=== PATIENT | female | born 1935 | race Caucasian/White ===

== ENCOUNTER → 2017-02-16 | Outpatient (CLI) | payer MEDICARE, BC ==
--- NOTE | 2017-02-16 16:42 | RAD ---
Right hip radiograph 02/16/2017 at 1616 hours Indication: Right hip pain radiating towards the back for 6 days Comparison: None available Technique: 2 views of the right hip are provided. Findings: There is joint space narrowing of the femoral acetabular joint. There is subchondral sclerosis along the superolateral acetabular rim. Mild osteophytosis is present. There is no acute fracture or dislocation. No soft tissue abnormality is identified. Mild osteoarthrosis of the symphysis pubis. 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
== END | disposition home or self-care (01) ==
LOC: RAD 15:52
PROVIDERS: ATTEND Family Medicine
DX: M16.11 Unilateral primary osteoarthritis, right hip (principal)
CPT/HCPCS: 73502

== ENCOUNTER → 2017-03-23 | Outpatient (CLI) | payer MEDICARE, BC ==
--- NOTE | 2017-03-23 12:58 | CARD ---
APPROVED REPORT EXAM: Two-dimensional and M-mode echocardiogram with Doppler and color Doppler. Other Information Quality : Good INDICATION Atrial Fibrillation 2D DIMENSIONS RVDd2.7 (2.9-3.5cm)Left Atrium(2D)2.7 (1.6-4.0cm) IVSd1.1 (0.7-1.1cm)Aortic Root(2D)3.0 (2.0-3.7cm) LVDd3.6 (3.9-5.9cm)LVOT Diameter2.0 (1.8-2.4cm) PWd1.0 (0.7-1.1cm)LVDs2.3 (2.5-4.0cm) FS (%) 30.0 %SV37.2 ml LVEF(%)60.0 (>50%) Aortic Valve AoV Peak Jimmy.98.2cm/sAoV VTI17.8cm AO Peak GR.3.9mmHgLVOT Peak Jimmy.83.4cm/s AO Mean GR.2mmHgAVA (VMAX)2.72cm2 MAYTE (VTI)3.20cm2 Mitral Valve MV E Eovfhyfb38.8cm/sMV DECEL WXUB586ld MV A Khfppwie96.6cm/sE/A Ratio0.6 Tricuspid Valve TR P. Mouarnmj558xe/sRAP RIZJXWLK0huYu TR Peak Gr.93nqGwYJCJ02qmLh Pulmonary Vein D2 Mfilmeel11.2cm/s LEFT VENTRICLE The left ventricle is normal size. There is normal left ventricular wall thickness. The left ventricu lar systolic function is normal and the ejection fraction is within normal range. The Ejection Fracti on is 55-60%. There is normal LV segmental wall motion. Transmitral Doppler flow pattern is Grade I-a bnormal relaxation pattern. RIGHT VENTRICLE The right ventricle is normal size. The right ventricular systolic function is normal. ATRIA The left atrium size is normal. The right atrium size is normal. The interatrial septum is intact wit h no evidence for an atrial septal defect or patent foramen ovale as noted on 2-D or Doppler imaging. AORTIC VALVE The aortic valve is normal in structure and function. Doppler and Color Flow revealed no significant aortic regurgitation. There is no significant aortic valvular stenosis. MITRAL VALVE The mitral valve is normal in structure and function. There is no evidence of mitral valve prolapse. There is no mitral valve stenosis. Doppler and Color-flow revealed trace to mild mitral regurgitation . TRICUSPID VALVE The tricuspid valve is normal in structure and function. Doppler and Color Flow revealed trace to mil d tricuspid regurgitation. The PA pressure was estimated at 38 mmHg. There is no tricuspid valve sten osis. PULMONIC VALVE Doppler and Color Flow revealed mild pulmonic valvular regurgitation. There is no pulmonic valvular s tenosis. GREAT VESSELS The aortic root is normal in size. The ascending aorta is normal in size. The IVC is normal in size a nd collapses >50% with inspiration. PERICARDIAL EFFUSION There is no evidence of significant pericardial effusion. Critical Notification Critical Value: No <Conclusion> The left ventricular systolic function is normal and the ejection fraction is within normal range. Th e Ejection Fraction is 55-60%. There is normal LV segmental wall motion.
== END | disposition home or self-care (01) ==
LOC: ECHO 10:14
PROVIDERS: ATTEND Internal Medicine Cardiovascular Disease
DX: I48.0 Paroxysmal atrial fibrillation (principal)
CPT/HCPCS: 93306

== ENCOUNTER → 2018-03-22 | Outpatient (CLI) | payer MEDICARE, BC ==
[2018-03-22] MEDS: REGADENOSON 0.4 MG/5 ML DISP.SYRIN. IV (09:33)
== END | disposition home or self-care (01) ==
LOC: NM 07:24
DX: I48.0 Paroxysmal atrial fibrillation (principal); J44.9 Chronic obstructive pulmonary disease, unspecified; M16.11 Unilateral primary osteoarthritis, right hip
CPT/HCPCS: 78452; 93017; 96374; 96375; 96376; A9500; J2785

== ENCOUNTER 2019-01-20 17:12 | Emergency (ER) | payer MEDICARE, BC ==
[~2019-01-20] VITALS: Ht 162.6 cm; Wt 77.1 kg
[~2019-01-20 17:12] MED LIST: ASPI-630 PO; CALC600T4 PO; CITA40TA5 PO; FLEC100T PO; HYDR-2145 PO; OMEP20CA10 PO; SIMV40TA3 PO; TIOT18CA IH; [UNRECOGNIZED DRUG - OTHER]
[2019-01-20] MEDS ORDERED: IV NORMAL SALINE 1000ML BAG 1,000 ML IV ONE (17:30)
[2019-01-20 17:40] LABS: BASO % 1 % (0-3); EOS # 0.1 x10^3/uL (0.0-0.7); EOS % 2 % (0-3); HEMATOCRIT 45.4 % (36.0-47.0); HEMOGLOBIN 15.4 g/dL (12.0-15.5); LYMPH % 29 % (24-48); MEAN CORPUSCULAR HEMOGLOBIN 32 pg (25-35); MEAN CORPUSCULAR HGB CONC 34 g/dL (31-37); MEAN CORPUSCULAR VOLUME 95 fL (79-100); MONO # 0.6 x10^3/uL (0.0-1.1); MONO % 8 % (0-9); NEUT # 4.4 x10^3uL (1.8-7.7); NEUT % 61 % (31-73); PLATELET COUNT 187 x10^3/uL (140-400); RED BLOOD COUNT 4.76 x10^6/uL (3.50-5.40); RED CELL DISTRIBUTION WIDTH 13.8 % (11.5-14.5); WHITE BLOOD COUNT 7.2 x10^3/uL (4.0-11.0)
[2019-01-20 17:52] LABS: CALCIUM 9.5 mg/dL (8.5-10.1); CREATININE 0.9 mg/dL (0.6-1.0); GFR 59.9; POTASSIUM 4.8 mmol/L (3.5-5.1)
[2019-01-20 18:00] LABS: ALBUMIN 3.6 g/dL (3.4-5.0); MAGNESIUM 2.1 mg/dL (1.8-2.4); TOTAL BILIRUBIN 0.4 mg/dL (0.2-1.0); TOTAL PROTEIN 7.3 g/dL (6.4-8.2)
[2019-01-20 18:08] LABS: CREATINE KINASE 55 U/L (26-192)
--- NOTE | 2019-01-20 18:23 | RAD ---
CT HEAD WO CONTRAST History: Fall, weakness Comparison: None. Technique: Noncontrast CT imaging was performed of the head. Exposure: One or more of the following individualized dose reduction techniques were utilized for this examination: 1. Automated exposure control 2. Adjustment of the mA and/or kV according to patient size 3. Use of iterative reconstruction technique. Findings: No acute extra-axial or parenchymal hemorrhage is identified. There is no significant intra-axial mass effect, midline shift, or extra-axial fluid collection. The dockery-white differentiation of the major vascular territories is preserved. The ventricles, sulci, and cisterns are within normal limits in size and configuration. Focus of extra-axial calcification in the right frontal region may be osteoma or calcified meningioma, not associated with significant soft tissue mass effect. The mastoid air cells and the visualized paranasal sinuses are aerated. No acute calvarial abnormality is identified. Impression: 1. No acute intracranial abnormality is identified. Electronically signed by: Reymundo Gallo MD (01/20/2019 6:21 PM) [facility]
[2019-01-20 19:11] LABS: BILIRUBIN,URINE NEGATIVE (NEG); CLARITY,URINE CLEAR; COLOR,URINE YELLOW; NITRITE,URINE NEGATIVE (NEG); PH,URINE 6.5; PROTEIN,URINE NEGATIVE (NEG-TRACE)
[2019-01-20 19:16] LABS: BACTERIA,URINE FEW /HPF (0-FEW); RBC,URINE 0 /HPF (0-2); SQUAMOUS EPITHELIAL CELL,UR FEW /LPF
[2019-01-20 19:17] LABS: AMORPHOUS SEDIMENT,UR PRESENT /HPF; BARBITURATES NEG (NEG); BENZODIAZEPINES NEG (NEG); CANNABINOIDS NEG (NEG); COCAINE NEG (NEG); METHADONE NEG (NEG); OPIATES NEG (NEG); PHENCYCLIDINE NEG (NEG)
--- NOTE | 2019-01-20 19:21 | PHYS DOC ---
Past Medical History Past Medical History: Cancer, COPD, Depression, High Cholesterol, Other Additional Past Medical Histor: colon cancer (YULIANA RAM APRN) Past Surgical History: Hysterectomy, Tonsillectomy, Other Additional Past Surgical Histo: bowel resection (YULIANA RAM APRN) Additional Information: quit smoking 1988 Alcohol Use: None Drug Use: None (YULIANA RAM APRN) Adult General Chief Complaint Chief Complaint: MECHANICAL FALL HPI HPI Patient is a 83 year old female with history of COPD, high cholesterol, who [place] the [place] Patient states he had finished gambling, had collected her money and was walking through the casino when she states she felt weak and fell back. Denies any loss of consciousness. Denies any headache or neck pain. Denies any pain anywhere. Off note she states she has been hungry, she had breakfast did not have lunch. She believes she was probably hungry when she fell. Denies any LOC (YULIANA RAM APRN) Review of Systems Review of Systems Constitutional: Denies fever or chills [] Eyes: Denies change in visual acuity, redness, or eye pain [] HENT: Denies nasal congestion or sore throat [] Respiratory: Denies cough or shortness of breath [] Cardiovascular: No additional information not addressed in HPI [] GI: Denies abdominal pain, nausea, vomiting, bloody stools or diarrhea [] : Denies dysuria or hematuria [] Musculoskeletal: Fall. Denies back pain or joint pain [] Integument: Denies rash or skin lesions [] Neurologic: Denies headache, focal weakness or sensory changes [] All other systems were reviewed and found to be within normal limits, except as documented in this note. (YULIANA RAM APRN) Current Medications Current Medications Current Medications Medications (Trade) Dose Ordered Sig/Romana Start Time Stop Time Status Last Admin Dose Admin Sodium Chloride 1,000 ml @ 1,000 mls/hr 1X ONCE 01/20/19 17:30 01/20/19 18:29 DC 01/20/19 17:41 1,000 MLS/HR (MONIKA HUNTER DO) Allergies Allergies Allergies Coded Allergies Type Severity Reaction Last Updated Verified No Known Drug Allergies 03/22/18 No (MONIKA HUNTER DO) Physical Exam Physical Exam Constitutional: Well developed, well nourished, no acute distress, non-toxic appearance. [] HENT: Normocephalic, atraumatic, bilateral external ears normal, oropharynx moist, no oral exudates, nose normal. [] Eyes: PERRLA, EOMI, conjunctiva normal, no discharge. [] Neck: Normal range of motion, no tenderness, supple, no stridor. [] Cardiovascular:Heart rate regular rhythm, no murmur [] Lungs & Thorax: Bilateral breath sounds clear to auscultation [] Abdomen: Bowel sounds normal, soft, no tenderness, no masses, no pulsatile masses. [] Skin: Warm, dry, no erythema, no rash. [] Back: No tenderness, no CVA tenderness. [] Extremities: No tenderness, no cyanosis, no clubbing, ROM intact, no edema. [] Neurologic: Alert and oriented X 3, normal motor function, normal sensory function, no focal deficits noted. Cranial nerves II through XII intact. Psychologic: Affect normal, judgement normal, mood normal. [] (YULIANA RAM APRN) Current Patient Data Vital Signs Vital Signs Date Time Temp Pulse Resp B/P (MAP) Pulse Ox O2 Delivery O2 Flow Rate FiO2 01/20/19 19:27 64 15 92 01/20/19 17:17 97.8 172/91 (118) Room Air 97.8 (HUNTER,MONIKA R DO) Lab Values Laboratory Tests Test 01/20/19 17:31 01/20/19 18:45 White Blood Count 7.2 x10^3/uL (4.0-11.0) Red Blood Count 4.76 x10^6/uL (3.50-5.40) Hemoglobin 15.4 g/dL (12.0-15.5) Hematocrit 45.4 % (36.0-47.0) Mean Corpuscular Volume 95 fL (79-100) Mean Corpuscular Hemoglobin 32 pg (25-35) Mean Corpuscular Hemoglobin Concent 34 g/dL (31-37) Red Cell Distribution Width 13.8 % (11.5-14.5) Platelet Count 187 x10^3/uL (140-400) Neutrophils (%) (Auto) 61 % (31-73) Lymphocytes (%) (Auto) 29 % (24-48) Monocytes (%) (Auto) 8 % (0-9) Eosinophils (%) (Auto) 2 % (0-3) Basophils (%) (Auto) 1 % (0-3) Neutrophils # (Auto) 4.4 x10^3uL (1.8-7.7) Lymphocytes # (Auto) 2.0 x10^3/uL (1.0-4.8) Monocytes # (Auto) 0.6 x10^3/uL (0.0-1.1) Eosinophils # (Auto) 0.1 x10^3/uL (0.0-0.7) Basophils # (Auto) 0.0 x10^3/uL (0.0-0.2) Prothrombin Time 13.0 SEC (11.7-14.0) Prothrombin Time INR 1.0 (0.8-1.1) Sodium Level 140 mmol/L (136-145) Potassium Level 4.8 mmol/L (3.5-5.1) Chloride Level 104 mmol/L (98-107) Carbon Dioxide Level 28 mmol/L (21-32) Anion Gap 8 (6-14) Blood Urea Nitrogen 15 mg/dL (7-20) Creatinine 0.9 mg/dL (0.6-1.0) Estimated GFR (Cockcroft-Gault) 59.9 BUN/Creatinine Ratio 17 (6-20) Glucose Level 95 mg/dL (70-99) Calcium Level 9.5 mg/dL (8.5-10.1) Magnesium Level 2.1 mg/dL (1.8-2.4) Total Bilirubin 0.4 mg/dL (0.2-1.0) Aspartate Amino Transferase (AST) 19 U/L (15-37) Alanine Aminotransferase (ALT) 16 U/L (14-59) Alkaline Phosphatase 78 U/L (46-116) Creatine Kinase 55 U/L (26-192) Creatine Kinase MB (Mass) 0.9 ng/mL (0.0-3.6) Creatine Kinase MB Relative Index % (0-4) Troponin I Quantitative < 0.017 ng/mL (0.000-0.055) MQ-Cvo-P-Type Natriuretic Peptide 384 pg/mL (0-449) Total Protein 7.3 g/dL (6.4-8.2) Albumin 3.6 g/dL (3.4-5.0) Albumin/Globulin Ratio 1.0 (1.0-1.7) Thyroid Stimulating Hormone (TSH) 2.954 uIU/mL (0.358-3.74) Ethyl Alcohol Level < 10 mg/dL (0-10) Urine Collection Type Unknown Urine Color Yellow Urine Clarity Clear Urine pH 6.5 Urine Specific [place] 1.010 Urine Protein Negative mg/dL (NEG-TRACE) Urine Glucose (UA) Negative mg/dL (NEG) Urine Ketones (Stick) Negative mg/dL (NEG) Urine Blood Negative (NEG) Urine Nitrite Negative (NEG) Urine Bilirubin Negative (NEG) Urine Urobilinogen Dipstick 1.0 mg/dL (0.2 mg/dL) Urine Leukocyte Esterase Small (NEG) Urine RBC 0 /HPF (0-2) Urine WBC 5-10 /HPF (0-4) Urine Squamous Epithelial Cells Few /LPF Urine Amorphous Sediment Present /HPF Urine Bacteria Few /HPF (0-FEW) Urine Mucus Slight /LPF Urine Opiates Screen Neg (NEG) Urine Methadone Screen Neg (NEG) Urine Barbiturates Neg (NEG) Urine Phencyclidine Screen Neg (NEG) Urine Amphetamine/Methamphetamine Neg (NEG) Urine Benzodiazepines Screen Neg (NEG) Urine Cocaine Screen Neg (NEG) Urine Cannabinoids Screen Neg (NEG) Urine Ethyl Alcohol Neg (NEG) Laboratory Tests 01/20/19 17:31 Laboratory Tests 01/20/19 17:31 (MONIKA HUNTER DO) EKG EKG [address] Hunter sinus rhythm heart rate 59 no STEMI[] (YULIANA RAM VICE PRESIDENT PROCESS) Radiology/Procedures Radiology/Procedures []PROCEDURE: CT HEAD WO CONTRAST CT HEAD WO CONTRAST History: Fall, weakness Comparison: None. Technique: Noncontrast CT imaging was performed of the head. Exposure: One or more of the following individualized dose reduction techniques were utilized for this examination: 1. Automated exposure control 2. Adjustment of the mA and/or kV according to patient size 3. Use of iterative reconstruction technique. Findings: No acute extra-axial or parenchymal hemorrhage is identified. There is no significant intra-axial mass effect, midline shift, or extra-axial fluid collection. The dockery-white differentiation of the major vascular territories is preserved. The ventricles, sulci, and cisterns are within normal limits in size and configuration. Focus of extra-axial calcification in the right frontal region may be osteoma or calcified meningioma, not associated with significant soft tissue mass effect. The mastoid air cells and the visualized paranasal sinuses are aerated. No acute calvarial abnormality is identified. Impression: 1. No acute intracranial abnormality is identified. Electronically signed by: Christiano Sampson MD (01/20/2019 6:21 PM) [facility] DICTATED and SIGNED BY: CHRISTIANO SAMPSON MD DATE: 01/20/191820 (YULIANA RAM APRN) Course & Med Decision Making Course & Med Decision Making Pertinent Labs and Imaging studies reviewed. (See chart for details) This is a 83-year-old female patient presenting to the ED today from the local [facility] after falling. She denies any loss of consciousness when she fell but she felt weak. She states she had not had lunch and this could have been the reason for her symptoms. On arrival to the ED she has no complaints. CT of the head is negative, lab work is negative, EKG was negative, chest x-ray is negative. Patient was given a liter of IV fluids. Ambulated with her with an RN to the bathroom for urine collection, she did very sign well requesting to go home. UA noted for UTI-D/C on Cephalaxin. F/u with PCP in 1 week. (YULIANA RAM APRN) Dragon Disclaimer Dragon Disclaimer This electronic medical record was generated, in whole or in part, using a voice recognition dictation system. (YULIANA RAM APRN) Departure Departure Impression: Primary Impression: Fall from standing Additional Impression: Urinary tract infection Disposition: 01 HOME, SELF-CARE Condition: STABLE Referrals: DAVID MANRIQUEZ MD (PCP) follow up in 1 week with your doctor Patient Instructions: Fall Prevention and Home Safety, Urinary Tract Infection Additional Instructions: You were evaluated in the emergency room after falling. Your urine was noted for infection, we put you on antibiotics, ensure you complete them. Please push fluids. Follow-up with your doctor in the next 3 days. Come back to the ED at any point symptoms worsen. Scripts Cephalexin (CEPHALEXIN) 500 Mg Tablet 1 TAB PO BID, #14 TAB Prov: YULIANA RAM APRN 01/20/19 Attending Signature Attending Signature I have reviewed the PA/EGG PACKER's note and plan of care. I was available for consultation as needed during the patient's visit in the emergency department. I agree with the clinical impression, plan, and disposition. (MONIKA HUNTER DO) Problem Qualifiers Primary Impression: Fall from standing Encounter type: initial encounter Qualified Codes: W19.XXXA - Unspecified fall, initial encounter Additional Impression: Urinary tract infection Urinary tract infection type: site unspecified Hematuria presence: without hematuria Qualified Codes: N39.0 - Urinary tract infection, site not spec ified YULIANA RAM VICE PRESIDENT PROCESS Jan 20, 2019 19:21 MONIKA HUNTER DO Jan 21, 2019 03:44
[2019-01-20] MEDS ORDERED: CEPH500T PO (19:23)
[2019-01-20 19:24] LABS: AMPHETAMINE/METHAMPHETAMINE NEG (NEG)
[2019-01-20 19:27] VITALS: BP 191/81
--- NOTE | 2019-01-20 21:51 | RAD ---
PORTABLE CHEST 1V History: Fall, weakness Comparison: None. Findings: Single view of the chest is submitted. There is no infiltrate, pneumothorax, or effusion. The pericardial cardiac silhouette is borderline in size. impression: 1. There is no radiographic evidence of acute cardiopulmonary disease. Electronically signed by: Reymundo Gallo MD (01/20/2019 9:48 PM) [facility]
--- NOTE | 2019-01-21 06:00 | EKG ---
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
== END 2019-01-20 19:40 | disposition home or self-care (01) ==
LOC: ER 17:12
DX: N39.0 Urinary tract infection, site not specified (principal); R53.1 Weakness; R51 Headache; E78.00 Pure hypercholesterolemia, unspecified; J44.9 Chronic obstructive pulmonary disease, unspecified; F32.9 Major depressive disorder, single episode, unspecified; Z90.710 Acquired absence of both cervix and uterus; Z87.891 Personal history of nicotine dependence; W18.39XA Other fall on same level, initial encounter; Y93.01 Activity, walking, marching and hiking; Y92.59 Other trade areas as the place of occurrence of the external cause; Y99.8 Other external cause status
CPT/HCPCS: 36415; 70450; 71045; 80053; 80307; 81001; 82553; 83735; 83880; 84443; 84484; 85025; 85610; 93005; 99285; G0480; J7030

== ENCOUNTER 2019-06-15 08:34 | Emergency (ER) | payer MEDICARE, BC ==
[~2019-06-15] VITALS: Ht 162.6 cm; Wt 76.7 kg
[~2019-06-15 08:34] MED LIST changes: +CEPH500T PO; +SIMV40TA18 PO; -SIMV40TA3 PO
--- NOTE | 2019-06-15 09:43 | RAD ---
EXAM: Chest, single view. HISTORY: Slurred speech. COMPARISON: 01/20/2019 FINDINGS: A frontal view of the chest is obtained. There is mild diffuse increased interstitial opacity likely due to atelectasis. There is no stephen congestion. There is no consolidation, pleural effusion or pneumothorax. There is a stable prominent cardiac silhouette. IMPRESSION: Stable interstitial prominence without stephen congestion or consolidation. Electronically signed by: Joann Ford MD (06/15/2019 9:40 AM) [place] [id number]
[2019-06-15 10:14] LABS: BASO % 1 % (0-3); EOS # 0.1 x10^3/uL (0.0-0.7); EOS % 2 % (0-3); HEMATOCRIT 42.1 % (36.0-47.0); LYMPH # 1.4 x10^3/uL (1.0-4.8); LYMPH % 18 % (24-48); MEAN CORPUSCULAR HEMOGLOBIN 32 pg (25-35); MEAN CORPUSCULAR HGB CONC 33 g/dL (31-37); MEAN CORPUSCULAR VOLUME 95 fL (79-100); MONO # 0.5 x10^3/uL (0.0-1.1); MONO % 7 % (0-9); NEUT # 5.8 x10^3/uL (1.8-7.7); NEUT % 74 % (31-73); PLATELET COUNT 223 x10^3/uL (140-400); RED BLOOD COUNT 4.45 x10^6/uL (3.50-5.40); RED CELL DISTRIBUTION WIDTH 13.8 % (11.5-14.5); WHITE BLOOD COUNT 7.9 x10^3/uL (4.0-11.0)
[2019-06-15 10:23] LABS: PROTHROMBIN TIME PATIENT 12.9 SEC (11.7-14.0)
--- NOTE | 2019-06-15 10:27 | RAD ---
CT HEAD WO CONTRAST History: slurred speech Comparison: January 20, 2019 Technique: Noncontrast CT imaging was performed of the head. Exposure: One or more of the following individualized dose reduction techniques were utilized for this examination: 1. Automated exposure control 2. Adjustment of the mA and/or kV according to patient size 3. Use of iterative reconstruction technique. Findings: No intracranial hemorrhage. No mass effect. No hydrocephalus. Extra-axial spaces are unremarkable. Mild foci of decreased attenuation within the hemispheric white matter, most often due to chronic microvascular ischemia. Imaged orbits are unremarkable. Imaged paranasal sinuses and mastoid air cells are clear. Unchanged smooth benign hyperostosis along the inner table right frontal region. Impression: 1. No acute intracranial abnormality. Electronically signed by: Mikel Ibanez DO (06/15/2019 10:24 AM) [id number]
[2019-06-15 10:35] LABS: CREATININE 0.9 mg/dL (0.6-1.0); GFR 59.9; POTASSIUM 4.5 mmol/L (3.5-5.1)
[2019-06-15 10:41] LABS: ALBUMIN 3.3 g/dL (3.4-5.0); MAGNESIUM 1.7 mg/dL (1.8-2.4); TOTAL BILIRUBIN 0.4 mg/dL (0.2-1.0); TOTAL PROTEIN 6.7 g/dL (6.4-8.2)
--- NOTE | 2019-06-15 10:47 | EKG ---
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
--- NOTE | 2019-06-15 11:53 | RAD ---
EXAM: Carotid Doppler sonogram. HISTORY: Transient ischemic attack. TECHNIQUE: [place]atham scale and color Doppler sonographic evaluation of the neck with spectral waveform analysis was performed and static images are submitted for review. FINDINGS: The peak systolic velocity within the right common carotid artery is 83 cm/sec. The peak systolic velocity within the right internal carotid artery is 71 cm/sec and the end diastolic velocity within the right internal carotid artery is 20 cm/sec. The right ICA/CCA ratio is 1.2. The peak systolic velocity within the left common carotid artery is 80 cm/sec. The peak systolic velocity within the left internal carotid artery is 99 cm/sec and the end diastolic velocity within the left internal carotid artery is 26 cm/sec. The left ICA/CCA ratio is 1.3. There is normal antegrade flow within both vertebral arteries. IMPRESSION: No Doppler evidence of hemodynamically significant stenosis within the carotid or vertebral arteries. PQRS Compliance Statement - Stenosis calculations for CT, MR and conventional angiography are based upon measurement of the distal ICA diameter in accordance with the NASCET methodology. Stenosis calculations for carotid ultrasound studies are derived from validated velocity criteria which are known to correlate with the NASCET methodology. Electronically signed by: Joann Ford MD (06/15/2019 11:50 AM) [id number]
--- NOTE | 2019-06-15 12:31 | PHYS DOC ---
Past Medical History Past Medical History: Cancer, COPD, Depression, GERD, High Cholesterol, Other Additional Past Medical Histor: colon cancer Past Surgical History: Appendectomy, Cholecystectomy, Hysterectomy, Tonsillect adonis, Other Additional Past Surgical Histo: bowel resection Alcohol Use: None Drug Use: None Adult General Chief Complaint Chief Complaint: NEURO SYMPTOMS/DEFICITS [facility] HPI Patient is a 83 year old female who presents with complaining of slurred speech. Patient complaining of 2 episodes of slurred speech yesterday that last about 30 minutes and resolved spontaneously without focal neuro deficit, nausea and vomiting, chest pain, shortness of breath, new headache, blurred vision, history of the same problem. Patient states her family asked her to come to emergency room for evaluation. Patient currently taking 81 mg of aspirin and had 1 today. Review of Systems Review of Systems Constitutional: Denies fever or chills [] Eyes: Denies change in visual acuity, redness, or eye pain [] HENT: Denies nasal congestion or sore throat [] Respiratory: Denies cough or shortness of breath [] Cardiovascular: No additional information not addressed in HPI [] GI: Denies abdominal pain, nausea, vomiting, bloody stools or diarrhea [] : Denies dysuria or hematuria [] Musculoskeletal: Denies back pain or joint pain [] Integument: Denies rash or skin lesions [] Neurologic: Denies headache, focal weakness or sensory changes [] Endocrine: Denies polyuria or polydipsia [] All other systems were reviewed and found to be within normal limits, except as documented in this note. Allergies Allergies Allergies Coded Allergies Type Severity Reaction Last Updated Verified No Known Drug Allergies 03/22/18 No Physical Exam Physical Exam Constitutional: Well developed, well nourished, no acute distress, non-toxic appearance. [] HENT: Normocephalic, atraumatic, bilateral external ears normal, oropharynx moist, no oral exudates, nose normal. [] Eyes: PERRLA, EOMI, conjunctiva normal, no discharge. [] Neck: Normal range of motion, no tenderness, supple, no stridor. [] Cardiovascular:Heart rate regular rhythm, no murmur [] Lungs & Thorax: Bilateral breath sounds clear to auscultation [] Abdomen: Bowel sounds normal, soft, no tenderness, no masses, no pulsatile masses. [] Skin: Warm, dry, no erythema, no rash. [] Back: No tenderness, no CVA tenderness. [] Extremities: No tenderness, no cyanosis, no clubbing, ROM intact, no edema. [] Neurologic: Alert and oriented X 3, normal motor function, normal sensory function, no focal deficits noted. [] Psychologic: Affect anxious, judgement normal, mood normal. [] Current Patient Data Vital Signs Vital Signs Date Time Temp Pulse Resp B/P (MAP) Pulse Ox O2 Delivery O2 Flow Rate FiO2 06/15/19 11:50 62 18 96 06/15/19 09:03 99.2 144/67 (92) Room Air 99.2 Lab Values Laboratory Tests Test 06/15/19 10:03 06/15/19 12:25 White Blood Count 7.9 x10^3/uL (4.0-11.0) Red Blood Count 4.45 x10^6/uL (3.50-5.40) Hemoglobin 14.0 g/dL (12.0-15.5) Hematocrit 42.1 % (36.0-47.0) Mean Corpuscular Volume 95 fL (79-100) Mean Corpuscular Hemoglobin 32 pg (25-35) Mean Corpuscular Hemoglobin Concent 33 g/dL (31-37) Red Cell Distribution Width 13.8 % (11.5-14.5) Platelet Count 223 x10^3/uL (140-400) Neutrophils (%) (Auto) 74 % (31-73) H Lymphocytes (%) (Auto) 18 % (24-48) L Monocytes (%) (Auto) 7 % (0-9) Eosinophils (%) (Auto) 2 % (0-3) Basophils (%) (Auto) 1 % (0-3) Neutrophils # (Auto) 5.8 x10^3/uL (1.8-7.7) Lymphocytes # (Auto) 1.4 x10^3/uL (1.0-4.8) Monocytes # (Auto) 0.5 x10^3/uL (0.0-1.1) Eosinophils # (Auto) 0.1 x10^3/uL (0.0-0.7) Basophils # (Auto) 0.0 x10^3/uL (0.0-0.2) Prothrombin Time 12.9 SEC (11.7-14.0) Prothrombin Time INR 1.0 (0.8-1.1) Sodium Level 141 mmol/L (136-145) Potassium Level 4.5 mmol/L (3.5-5.1) Chloride Level 106 mmol/L (98-107) Carbon Dioxide Level 28 mmol/L (21-32) Anion Gap 7 (6-14) Blood Urea Nitrogen 16 mg/dL (7-20) Creatinine 0.9 mg/dL (0.6-1.0) Estimated GFR (Cockcroft-Gault) 59.9 BUN/Creatinine Ratio 18 (6-20) Glucose Level 87 mg/dL (70-99) Calcium Level 9.0 mg/dL (8.5-10.1) Magnesium Level 1.7 mg/dL (1.8-2.4) L Total Bilirubin 0.4 mg/dL (0.2-1.0) Aspartate Amino Transferase (AST) 20 U/L (15-37) Alanine Aminotransferase (ALT) 14 U/L (14-59) Alkaline Phosphatase 95 U/L (46-116) Creatine Kinase 55 U/L (26-192) Troponin I Quantitative < 0.017 ng/mL (0.000-0.055) AQ-Ldq-G-Type Natriuretic Peptide 375 pg/mL (0-449) Total Protein 6.7 g/dL (6.4-8.2) Albumin 3.3 g/dL (3.4-5.0) L Albumin/Globulin Ratio 1.0 (1.0-1.7) Urine Collection Type Unknown Urine Color Yellow Urine Clarity Clear Urine pH 6.0 Urine Specific [place] 1.010 Urine Protein Negative mg/dL (NEG-TRACE) Urine Glucose (UA) Negative mg/dL (NEG) Urine Ketones (Stick) Negative mg/dL (NEG) Urine Blood Negative (NEG) Urine Nitrite Negative (NEG) Urine Bilirubin Negative (NEG) Urine Urobilinogen Dipstick 1.0 mg/dL (0.2 mg/dL) Urine Leukocyte Esterase Small (NEG) Urine RBC Occ /HPF (0-2) Urine WBC 5-10 /HPF (0-4) Urine Squamous Epithelial Cells Mod /LPF Urine Bacteria Moderate /HPF (0-FEW) Urine Mucus Slight /LPF Laboratory Tests 06/15/19 10:03 Laboratory Tests 06/15/19 10:03 EKG EKG EKG interpreted by me. EKG at 0 945 showed normal sinus rhythm at rate of 64 to fall at 224, left fourth axis, no acute ST and T-wave abnormalities. Radiology/Procedures Radiology/Procedures [][facility] [address] [place] [address] IMAGING REPORT Signed PATIENT: HARDEEP KNIGHT ACCOUNT: [id number] : 1935 LOCATION: ER AGE: 83 SEX: F EXAM STATUS: REG ER ORD. PHYSICIAN: ELSI JAMES MD REASON: slurred speech PROCEDURE: CT HEAD WO CONTRAST CT HEAD WO CONTRAST History: slurred speech Comparison: January 20, 2019 Technique: Noncontrast CT imaging was performed of the head. Exposure: One or more of the following individualized dose reduction techniques were utilized for this examination: 1. Automated exposure control 2. Adjustment of the mA and/or kV according to patient size 3. Use of iterative reconstruction technique. Findings: No intracranial hemorrhage. No mass effect. No hydrocephalus. Extra-axial spaces are unremarkable. Mild foci of decreased attenuation within the hemispheric white matter, most often due to chronic microvascular ischemia. Imaged orbits are unremarkable. Imaged paranasal sinuses and mastoid air cells are clear. Unchanged smooth benign hyperostosis along the inner table right frontal region. Impression: 1. No acute intracranial abnormality. Electronically signed by: Mikel Ibanez DO (06/15/2019 10:24 AM) [id number] DICTATED and SIGNED BY: MIKEL IBANEZ DO DATE: 06/15/[address] [place] [address] [address] [place] [address] IMAGING REPORT Signed PATIENT: HARDEEP KNIGHT ACCOUNT: [id number] : 1935 LOCATION: ER AGE: 83 SEX: F EXAM STATUS: REG ER ORD. PHYSICIAN: ELSI JAMES MD REASON: slurred speech PROCEDURE: PORTABLE CHEST 1V EXAM: Chest, single view. HISTORY: Slurred speech. COMPARISON: 01/20/2019 FINDINGS: A frontal view of the chest is obtained. There is mild diffuse increased interstitial opacity likely due to atelectasis. There is no stephen congestion. There is no consolidation, pleural effusion or pneumothorax. There is a stable prominent cardiac silhouette. IMPRESSION: Stable interstitial prominence without stephen congestion or consolidation. Electronically signed by: Joann Barnes MD (06/15/2019 9:40 AM) [place] [id number] DICTATED and SIGNED BY: JOANN BARNES MD DATE: 06/15/19939 [facility] [address] [place] [address] IMAGING REPORT Signed PATIENT: HARDEEP KNIGHT ACCOUNT: [id number] : 1935 LOCATION: ER AGE: 83 SEX: F EXAM STATUS: REG ER ORD. PHYSICIAN: ELSI JAMES MD REASON: episode of TIA PROCEDURE: DOPPLER CAROTID BILAT EXAM: Carotid Doppler sonogram. HISTORY: Transient ischemic attack. TECHNIQUE: Cheatham scale and color Doppler sonographic evaluation of the neck with spectral waveform analysis was performed and static images are submitted for review. FINDINGS: The peak systolic velocity within the right common carotid artery is 83 cm/sec. The peak systolic velocity within the right internal carotid artery is 71 cm/sec and the end diastolic velocity within the right internal carotid artery is 20 cm/sec. The right ICA/CCA ratio is 1.2. The peak systolic velocity within the left common carotid artery is 80 cm/sec. The peak systolic velocity within the left internal carotid artery is 99 cm/sec and the end diastolic velocity within the left internal carotid artery is 26 cm/sec. The left ICA/CCA ratio is 1.3. There is normal antegrade flow within both vertebral arteries. IMPRESSION: No Doppler evidence of hemodynamically significant stenosis within the carotid or vertebral arteries. PQRS Compliance Statement - Stenosis calculations for CT, MR and conventional angiography are based upon measurement of the distal ICA diameter in accordance with the NASCET methodology. Stenosis calculations for carotid ultrasound studies are derived from validated velocity criteria which are known to correlate with the NASCET methodology. Electronically signed by: Joann Barnes MD (06/15/2019 11:50 AM) [facility] DICTATED and SIGNED BY: JOANN BARNES MD DATE: 06/15/19 1150 Course & Med Decision Making Course & Med Decision Making Pertinent Labs and Imaging studies reviewed. (See chart for details) Evaluation of patient in ER showed 83-year-old female patient with 2 episodes of slurred speech yesterday that resolved spontaneously. Patient had unremarkable physical exam and labs and CT except for mild hypomagnesemia. 81 mg of aspirin and was advised to continue aspirin and follow-up with on-call neurologist for evaluation of TIA. Dragon Disclaimer Dragon Disclaimer This electronic medical record was generated, in whole or in part, using a voice recognition dictation system. Departure Departure Impression: Primary Impression: TIA (transient ischemic attack) Additional Impressions: Hypomagnesemia UTI (urinary tract infection) Disposition: 01 HOME, SELF-CARE (at 1227) Condition: STABLE Referrals: DAVID MANRIQUEZ MD (PCP) CASEY ENCINAS MD Patient Instructions: Hypomagnesemia, Transient Ischemic Attack, Urinary Tract Infection Additional Instructions: Continue current medication Follow-up with your primary care physician in 3-5 days Return to ER if not getting better Follow-up with on-call neurologist regarding mini stroke Scripts Ciprofloxacin Hcl (CIPRO) 250 Mg Tablet 1 TAB PO BID for infection, #14 TAB Prov: ELSI JAMES MD 06/15/19 Problem Qualifiers ELSI JAMES MD Jun 15, 2019 12:31
[2019-06-15 12:45] LABS: BILIRUBIN,URINE NEGATIVE (NEG); CLARITY,URINE CLEAR; COLOR,URINE YELLOW; NITRITE,URINE NEGATIVE (NEG); PROTEIN,URINE NEGATIVE (NEG-TRACE)
[2019-06-15 12:52] LABS: SQUAMOUS EPITHELIAL CELL,UR MOD /LPF
[2019-06-15 12:53] LABS: BACTERIA,URINE MODERATE /HPF (0-FEW)
[2019-06-15 12:54] LABS: RBC,URINE OCC /HPF (0-2)
[2019-06-15] MEDS ORDERED: CIPR250T30 PO (13:38)
[2019-06-15 13:41] VITALS: BP 164/76
== END 2019-06-15 13:50 | disposition home or self-care (01) ==
LOC: ER 08:34
DX: G45.9 Transient cerebral ischemic attack, unspecified (principal); N39.0 Urinary tract infection, site not specified; E83.42 Hypomagnesemia; J44.9 Chronic obstructive pulmonary disease, unspecified; K21.9 Gastro-esophageal reflux disease without esophagitis; E78.00 Pure hypercholesterolemia, unspecified; F32.9 Major depressive disorder, single episode, unspecified; Z90.89 Acquired absence of other organs; Z90.49 Acquired absence of other specified parts of digestive tract; Z90.710 Acquired absence of both cervix and uterus
CPT/HCPCS: 36415; 70450; 71045; 80053; 81001; 82550; 83735; 83880; 84484; 85025; 85610; 87086; 93005; 93880; 99285-25

== ENCOUNTER 2019-06-26 14:07 | Emergency (ER) | payer MEDICARE, BC ==
[~2019-06-26] VITALS: Ht 162.6 cm; Wt 74.8 kg
[~2019-06-26 14:07] MED LIST changes: +CIPR250T30 PO
[2019-06-26 16:22] LABS: BASO % 0 % (0-3); EOS # 0.1 x10^3/uL (0.0-0.7); EOS % 1 % (0-3); HEMOGLOBIN 13.1 g/dL (12.0-15.5); LYMPH # 1.1 x10^3/uL (1.0-4.8); LYMPH % 10 % (24-48); MEAN CORPUSCULAR HEMOGLOBIN 31 pg (25-35); MEAN CORPUSCULAR HGB CONC 34 g/dL (31-37); MEAN CORPUSCULAR VOLUME 94 fL (79-100); MONO # 0.8 x10^3/uL (0.0-1.1); MONO % 8 % (0-9); NEUT # 8.4 x10^3/uL (1.8-7.7); NEUT % 80 % (31-73); PLATELET COUNT 244 x10^3/uL (140-400); RED BLOOD COUNT 4.18 x10^6/uL (3.50-5.40); RED CELL DISTRIBUTION WIDTH 13.7 % (11.5-14.5); WHITE BLOOD COUNT 10.4 x10^3/uL (4.0-11.0)
[2019-06-26 16:27] LABS: BILIRUBIN,URINE NEGATIVE (NEG); CLARITY,URINE CLEAR; COLOR,URINE YELLOW; NITRITE,URINE NEGATIVE (NEG); PROTEIN,URINE NEGATIVE (NEG-TRACE)
[2019-06-26 16:30] LABS: CALCIUM 8.8 mg/dL (8.5-10.1); CREATININE 0.8 mg/dL (0.6-1.0); GFR 68.7; POTASSIUM 3.7 mmol/L (3.5-5.1)
[2019-06-26 16:32] LABS: BACTERIA,URINE 0 /HPF (0-FEW); RBC,URINE RARE /HPF (0-2); SQUAMOUS EPITHELIAL CELL,UR OCC /LPF; WBC,URINE 0 /HPF (0-4)
[2019-06-26 16:36] LABS: ALBUMIN 2.8 g/dL (3.4-5.0); ALBUMIN/GLOBULIN RATIO 0.7 (1.0-1.7); TOTAL BILIRUBIN 0.4 mg/dL (0.2-1.0)
--- NOTE | 2019-06-26 16:46 | RAD ---
Exam: Chest one view INDICATION: Chest pain TECHNIQUE: Frontal view of the chest Comparisons: 04/15/2019 FINDINGS: The cardiomediastinal silhouette and pulmonary vessels are within normal limits. The lung and pleural spaces are clear. IMPRESSION: No acute cardiopulmonary process. Electronically signed by: Yogi Oliver MD (06/26/2019 4:43 PM) [facility]
--- NOTE | 2019-06-26 16:56 | PHYS DOC ---
Past Medical History Past Medical History: Cancer, COPD, Depression, GERD, High Cholesterol, Other Additional Past Medical Histor: colon cancer Past Surgical History: Appendectomy, Cholecystectomy, Hysterectomy, Tonsillect adonis, Other Additional Past Surgical Histo: bowel resection Alcohol Use: None Drug Use: None Adult General Chief Complaint Chief Complaint: FLANK PAIN HPI HPI Patient is a 83 year old female who presents with states she is having left back pain that comes and go. Patient states she was treated for a urinary tract infections been done with antibiotic for a week. Patient also complains of right hip pain that radiates down her leg and is worse with walking it comes off and on and usually every morning though after she takes Tylenol gets better. Patient states is worse with moving. Patient currently rates her pain a 6 out of 10. Review of Systems Review of Systems Musculoskeletal: Left back pain or Right hip joint pain [] All other systems were reviewed and found to be within normal limits, except as documented in this note. Current Medications Current Medications Current Medications Medications (Trade) Dose Ordered Sig/Romana Start Time Stop Time Status Last Admin Dose Admin Acetaminophen (Tylenol) 650 mg 1X ONCE 06/26/19 17:00 06/26/19 17:01 DC 06/26/19 17:04 650 MG Allergies Allergies Allergies Coded Allergies Type Severity Reaction Last Updated Verified No Known Drug Allergies 03/22/18 No Physical Exam Physical Exam Constitutional: Well developed, well nourished, no acute distress, non-toxic appearance. [] HENT: Normocephalic, atraumatic, bilateral external ears normal, oropharynx moist, no oral exudates, nose normal. [] Eyes: PERRLA, EOMI, conjunctiva normal, no discharge. [] Neck: Normal range of motion, no tenderness, supple, no stridor. [] Cardiovascular:Heart rate regular rhythm, no murmur [] Lungs & Thorax: Bilateral breath sounds clear to auscultation [] Abdomen: Bowel sounds normal, soft, no tenderness, no masses, no pulsatile masses. [] Skin: Warm, dry, no erythema, no rash. [] Back: No tenderness, no CVA tenderness. [] Extremities: No tenderness, no cyanosis, no clubbing, ROM intact, no edema. [] Neurologic: Alert and oriented X 3, normal motor function, normal sensory function, no focal deficits noted. [] Psychologic: Affect normal, judgement normal, mood normal. Normal Physical Exam[] Current Patient Data Vital Signs Vital Signs Date Time Temp Pulse Resp B/P (MAP) Pulse Ox O2 Delivery O2 Flow Rate FiO2 06/26/19 15:30 98.6 70 17 129/56 (80) 95 98.6 Lab Values Laboratory Tests Test 06/26/19 15:35 06/26/19 15:52 White Blood Count 10.4 x10^3/uL (4.0-11.0) Red Blood Count 4.18 x10^6/uL (3.50-5.40) Hemoglobin 13.1 g/dL (12.0-15.5) Hematocrit 39.0 % (36.0-47.0) Mean Corpuscular Volume 94 fL (79-100) Mean Corpuscular Hemoglobin 31 pg (25-35) Mean Corpuscular Hemoglobin Concent 34 g/dL (31-37) Red Cell Distribution Width 13.7 % (11.5-14.5) Platelet Count 244 x10^3/uL (140-400) Neutrophils (%) (Auto) 80 % (31-73) H Lymphocytes (%) (Auto) 10 % (24-48) L Monocytes (%) (Auto) 8 % (0-9) Eosinophils (%) (Auto) 1 % (0-3) Basophils (%) (Auto) 0 % (0-3) Neutrophils # (Auto) 8.4 x10^3/uL (1.8-7.7) H Lymphocytes # (Auto) 1.1 x10^3/uL (1.0-4.8) Monocytes # (Auto) 0.8 x10^3/uL (0.0-1.1) Eosinophils # (Auto) 0.1 x10^3/uL (0.0-0.7) Basophils # (Auto) 0.0 x10^3/uL (0.0-0.2) Sodium Level 139 mmol/L (136-145) Potassium Level 3.7 mmol/L (3.5-5.1) Chloride Level 102 mmol/L (98-107) Carbon Dioxide Level 31 mmol/L (21-32) Anion Gap 6 (6-14) Blood Urea Nitrogen 14 mg/dL (7-20) Creatinine 0.8 mg/dL (0.6-1.0) Estimated GFR (Cockcroft-Gault) 68.7 BUN/Creatinine Ratio 18 (6-20) Glucose Level 96 mg/dL (70-99) Calcium Level 8.8 mg/dL (8.5-10.1) Total Bilirubin 0.4 mg/dL (0.2-1.0) Aspartate Amino Transferase (AST) 21 U/L (15-37) Alanine Aminotransferase (ALT) 12 U/L (14-59) L Alkaline Phosphatase 97 U/L (46-116) Total Protein 7.0 g/dL (6.4-8.2) Albumin 2.8 g/dL (3.4-5.0) L Albumin/Globulin Ratio 0.7 (1.0-1.7) L Urine Collection Type Void Urine Color Yellow Urine Clarity Clear Urine pH 6.0 Urine Specific [place] 1.010 Urine Protein Negative mg/dL (NEG-TRACE) Urine Glucose (UA) Negative mg/dL (NEG) Urine Ketones (Stick) Negative mg/dL (NEG) Urine Blood Negative (NEG) Urine Nitrite Negative (NEG) Urine Bilirubin Negative (NEG) Urine Urobilinogen Dipstick 1.0 mg/dL (0.2 mg/dL) Urine Leukocyte Esterase Negative (NEG) Urine RBC Rare /HPF (0-2) Urine WBC 0 /HPF (0-4) Urine Squamous Epithelial Cells Occ /LPF Urine Bacteria 0 /HPF (0-FEW) Laboratory Tests 06/26/19 15:35 Laboratory Tests 06/26/19 15:35 EKG EKG Sinus Rhythm and no STEMI[] Interpretation Time: [address] Cabezas Radiology/Procedures Radiology/Procedures [] Impressions: [facility] [address] [place], [place] [id number] IMAGING REPORT Signed PATIENT: HARDEEP KNIGHT ACCOUNT: [id number] : 1935 LOCATION: ER AGE: 83 SEX: F EXAM STATUS: REG ER ORD. PHYSICIAN: CARMEN RANDLE APRN REASON: chest pain PROCEDURE: PORTABLE CHEST 1V Exam: Chest one view INDICATION: Chest pain TECHNIQUE: Frontal view of the chest Comparisons: 04/15/2019 FINDINGS: The cardiomediastinal silhouette and pulmonary vessels are within normal limits. The lung and pleural spaces are clear. IMPRESSION: No acute cardiopulmonary process. Electronically signed by: Yogi Myers MD (06/26/2019 4:43 PM) [id number] DICTATED and SIGNED BY: YOGI MYERS MD DATE: 06/26/19 1643 [facility] [address] [place] [address] IMAGING REPORT Signed PATIENT: HARDEEP KNIGHT ACCOUNT: [id number] : 1935 LOCATION: ER AGE: 83 SEX: F EXAM STATUS: REG ER ORD. PHYSICIAN: CARMEN RANDLE APRN REASON: Right hip pain, no injury PROCEDURE: HIP RIGHT 1 VIEW WITH PELVIS Exam: Pelvis with right hip INDICATION: Right hip pain TECHNIQUE: Frontal view of pelvis with frog-leg lateral view of the right hip Comparisons: None FINDINGS: Bone mineralization is normal. No acute or healed fractures. Soft tissues are unremarkable. 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 Sacroiliac joints and pubic symphysis are well-maintained. Degenerative changes noted in the lower lumbar spine.. IMPRESSION: No acute osseous abnormality. Degenerative changes as described above. Electronically signed by: Yogi Myers MD (06/26/2019 5:33 PM) [id number] DICTATED and SIGNED BY: YOGI MYERS MD DATE: 06/26/19 1733 Course & Med Decision Making Course & Med Decision Making No CVA tenderness. No tenderness spinal or paraspinal tenderness to her back, no deformity, no bruising and denies injury. That is the side that she is using the cane with. Patient states it hurt more with movement. No right hip or lower back or leg tenderness palpation. There is no swelling to the extremity bruising or deformity. Patient denies injury. She denies falls. Patient states that she uses her 's cane since the right hip and leg are starting to bother her. Cap refill is less than 3 seconds. Skin is pink warm and dry. Pedal pulses present. Patient can bend at all joints and has full range of motion of the knee and at the hip. Patient states it is painful when moving of her joints. No Joint laxity. Patient states she took Tylenol this morning early. She states she took 2 500 mg Tylenol. Lungs Clear to auscultation in all lobes. Abdomen is soft and nontender. Alert and oriented. Speaks in full clear sentences. Patient denies chest pain, cough, fever, shortness of breath, headache, numbness or tingling, dizziness, syncope, abdominal pain, nausea, vomiting. X-ray shows no acute findings and some degenerative changes. Vital signs are within normal limits. Urinalysis negative. EKG is normal sinus rhythm. Patient to continue taking Tylenol and to follow-up with her primary care provider. [place]ion Disclaimer Arron Disclaimer This electronic medical record was generated, in whole or in part, using a voice recognition dictation system. Departure Departure Impression: Primary Impression: Joint pain Additional Impression: Back pain Disposition: 01 HOME, SELF-CARE Condition: STABLE Referrals: UNKNOWN PCP NAME (PCP) Patient Instructions: Arthritis, Degenerative-Brief Additional Instructions: Follow-up with primary care provider. Drink plenty of fluids. Continue taking Tylenol and try using heat or cold for her pain. Problem Qualifiers Primary Impression: Joint pain Joint pain location: hip Laterality: right Qualified Codes: M25.551 - Pain in right hip Additional Impression: Back pain Back pain location: back pain in other location Chronicity: acute Qualified Codes: M54.9 - Dorsalgia, unspecified CARMEN RANDLE APRN Jun 26, 2019 16:56
[2019-06-26] MEDS ORDERED: ACETAMINOPHEN 325 MG TABLET. PO ONE (17:00)
--- NOTE | 2019-06-26 17:36 | RAD ---
Exam: Pelvis with right hip INDICATION: Right hip pain TECHNIQUE: Frontal view of pelvis with frog-leg lateral view of the right hip Comparisons: None FINDINGS: Bone mineralization is normal. No acute or healed fractures. Soft tissues are unremarkable. 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 Sacroiliac joints and pubic symphysis are well-maintained. Degenerative changes noted in the lower lumbar spine.. IMPRESSION: No acute osseous abnormality. Degenerative changes as described above. Electronically signed by: Yogi Oliver MD (06/26/2019 5:33 PM) [id number]
[2019-06-26 18:00] VITALS: BP 153/73
--- NOTE | 2019-06-27 07:25 | EKG ---
[facility] [address] [place] [address] Test Date: 2019-06-26 Test Time: 17:03:36 Pat Name: HARDEEP KNIGHT Department: Room: Gender: F Order Takers Supervisor: : 1935 Requested By: CARMEN RANDLE Order Number: [id number] Reading MD: Measurements Intervals [place] Rate: 68 P: 30 [place]: 206 QRS: 11 QRSD: 82 T: 59 QT: 396 QTc: 421 Interpretive Statements SINUS RHYTHM LOW LIMB LEAD VOLTAGE NO SPECIFIC ECG ABNORMALITIES RI6.01 No previous ECG available for comparison
== END 2019-06-26 18:15 | disposition home or self-care (01) ==
LOC: ER 14:07
DX: M25.551 Pain in right hip (principal); M54.89 Other dorsalgia; J44.9 Chronic obstructive pulmonary disease, unspecified; F32.9 Major depressive disorder, single episode, unspecified; K21.9 Gastro-esophageal reflux disease without esophagitis; E78.00 Pure hypercholesterolemia, unspecified; Z87.440 Personal history of urinary (tract) infections; Z90.89 Acquired absence of other organs; Z90.49 Acquired absence of other specified parts of digestive tract; Z90.710 Acquired absence of both cervix and uterus
CPT/HCPCS: 36415; 71045; 73501; 80053; 81001; 85025; 93005; 99285-25

== ENCOUNTER → 2019-07-12 | Outpatient (CLI) | payer MEDICARE, BC ==
[2019-06-26 18:00] VITALS: BP 153/73
[~2019-07-12] MED LIST changes: +OMEP-229 PO; -OMEP20CA10 PO
--- NOTE | 2019-07-12 15:47 | EKG ---
[facility] [address] [place] [address] Test Date: 2019-07-12 Test Time: 15:41:31 Pat Name: HARDEEP KNIGHT Department: Room: Gender: F Residence Life Coordinator: JENNIFER : 1935 Requested By: OBI ROWELL Order Number: [id number] Reading MD: Measurements Intervals [place] Rate: 78 P: FL: QRS: 20 QRSD: 76 T: 64 QT: 404 QTc: 464 Interpretive Statements SINUS RHYTHM LOW LIMB LEAD VOLTAGE NO SPECIFIC ECG ABNORMALITIES RI6.02 Compared to ECG 01/20/2019 17:23:58 Left-axis deviation no longer present
== END | disposition home or self-care (01) ==
LOC: EKG 15:16
PROVIDERS: ATTEND Psychiatry & Neurology Neurology
DX: I48.91 Unspecified atrial fibrillation (principal)
CPT/HCPCS: 93005

== ENCOUNTER → 2019-07-25 | Outpatient (CLI) | payer MEDICARE, BC ==
[2019-06-26 18:00] VITALS: BP 153/73
--- NOTE | 2019-07-25 09:41 | RAD ---
MRI Brain without contrast History: Memory loss, word finding difficulty Technique: Multiplanar, multisequential noncontrast MR imaging was performed of the brain. Comparison: None Findings: There is no evidence of recent infarct or cytotoxic edema. Ventricular size is within normal limits. There is mild supratentorial involutional change.There is no significant midline shift, intraaxial mass effect, or focal abnormal extra-axial fluid collection. There is mild T2 and FLAIR hyperintense signal abnormality of the supratentorial periventricular white matter bilaterally. There is preservation of the major intracranial flow-voids at the skull base. The mastoid air cells are aerated. The cerebellar tonsils are normal in location. There is no significant abnormality of the pineal gland or small pituitary gland. There is mild bilateral ethmoid air cell mucosal thickening. There is nonspecific mild heterogeneity of the marrow of the nonexpanded clivus. There has been lens surgery bilaterally. Impression: 1. There is no intracranial mass effect or evidence of recent infarct. There is minimal T2 and FLAIR hyperintense signal of the supratentorial white matter, nonspecific findings more commonly due to chronic microvascular ischemic disease in a patient this age. There is mild supratentorial involutional change. Electronically signed by: Reymundo Gallo MD (07/25/2019 9:38 AM) [id number]
== END | disposition home or self-care (01) ==
LOC: MRI 08:07
PROVIDERS: ATTEND Psychiatry & Neurology Neurology
DX: G93.89 Other specified disorders of brain (principal); R41.3 Other amnesia; R47.89 Other speech disturbances; I48.91 Unspecified atrial fibrillation; E78.00 Pure hypercholesterolemia, unspecified; Z87.891 Personal history of nicotine dependence; Z90.49 Acquired absence of other specified parts of digestive tract; Z90.710 Acquired absence of both cervix and uterus; Z90.89 Acquired absence of other organs
CPT/HCPCS: 70551

== ENCOUNTER → 2019-07-25 | Outpatient (CLI) | payer MEDICARE, BC ==
[2019-06-26 18:00] VITALS: BP 153/73
--- NOTE | 2019-07-25 13:25 | EEG ---
DATE OF SERVICE: 07/25/2019 EEG NUMBER: [id number] OBJECTIVE: This is an 84-year-old female patient with history of memory loss. EEG was requested to evaluate cerebral activity. METHODS: Twenty electrodes were applied according to the international 10-20 electrode placement system. EKG monitoring, hyperventilation, intermittent photic stimulation, monopolar and bipolar montages are routinely utilized. The record was obtained on a digital system with video monitoring. FINDINGS: 1. Background: The patient was recorded in the awake, drowsy, and sleep states. The overall background amplitude is 10-20 microvolts. A posterior dominant rhythm of 6-8 Hz is observed. 2. Abnormalities: No specific epileptiform discharge or electrographic seizure is seen. No focal or diffuse slowing. 3. Activation: Hyperventilation was performed with good efforts and normal response. Intermittent photic stimulation was performed with photic driving. No specific epileptiform discharge or electrographic seizure induced by hyperventilation or intermittent photic stimulation. IMPRESSION: This EEG falls into the abnormal category of the study for the awake, drowsy, and sleep states. The posterior dominant rhythm of 6-8 Hz is slow for age. No focal, lateralizing, specific epileptiform discharge, or electrographic seizure is seen. OBI ROWELL MD DR: ROSALIA/marion JOB#: [id number] / [id number] EMILIANA
== END | disposition home or self-care (01) ==
LOC: RT 09:34
PROVIDERS: ATTEND Psychiatry & Neurology Neurology
DX: R41.3 Other amnesia (principal); R47.89 Other speech disturbances; Z87.891 Personal history of nicotine dependence
CPT/HCPCS: 95816

== ENCOUNTER 2019-08-07 00:33 | Emergency (ER) | payer MEDICARE, BC ==
[~2019-08-07] VITALS: Ht 162.6 cm; Wt 76.7 kg
[~2019-08-07 00:33] MED LIST changes: -OMEP-229 PO; +OMEP20CA16 PO
--- NOTE | 2019-08-07 01:52 | PHYS DOC ---
Past Medical History Past Medical History: Cancer, COPD, Depression, GERD, High Cholesterol, TIA, Other Additional Past Medical Histor: colon cancer Past Surgical History: Appendectomy, Cholecystectomy, Hysterectomy, Tonsi llectomy, Other Additional Past Surgical Histo: bowel resection Alcohol Use: None Drug Use: None Adult General Chief Complaint Chief Complaint: BLURRED/DOUBLE VISION HPI HPI 84-year-old female with underlying history of hypertension, depression, hyperlip idemia presents to the emergency department for further evaluation. Patient has complaints of bilateral hip pain initially she was seen by primary care physician and prescribed tramadol as well as meloxicam however states she did not like the way it made her feel. Patient did take Tylenol I was able to sleep does night. Tonight she describes hallucinations, blurry vision at times. However not currently. She denies any complaints of chest pain, shortness breath, nausea, vomiting, headache or visual change at this time. Nothing makes her symptoms worse nothing makes her symptoms better Review of Systems Review of Systems Constitutional: Denies fever or chills [] Eyes: blurry vision at times Respiratory: Denies cough or shortness of breath [] Cardiovascular: No additional information not addressed in HPI [] GI: Denies abdominal pain, nausea, vomiting, bloody stools or diarrhea [] Neurologic: Denies headache, focal weakness or sensory changes, hallucinations[] All other systems were reviewed and found to be within normal limits, except as documented in this note. Allergies Allergies Allergies Coded Allergies Type Severity Reaction Last Updated Verified No Known Drug Allergies 03/22/18 No Physical Exam Physical Exam Constitutional: Well developed, well nourished, no acute distress, non-toxic appearance. [] HENT: Normocephalic, atraumatic, bilateral external ears normal, oropharynx moist, no oral exudates, nose normal. [] Eyes: PERRLA, EOMI, conjunctiva normal, no discharge. [] Cardiovascular:Heart rate regular rhythm, no murmur [] Lungs & Thorax: Bilateral breath sounds clear to auscultation [] Abdomen: Bowel sounds normal, soft, no tenderness, no masses, no pulsatile masses. [] Skin: Warm, dry, no erythema, no rash. [] Back: No tenderness, no CVA tenderness. [] Extremities: No tenderness, no edema. [] Neurologic: Alert and oriented X 3, no focal deficits noted. [] Psychologic: Affect normal, judgement normal, mood normal. [] Current Patient Data Vital Signs Vital Signs Date Time Temp Pulse Resp B/P (MAP) Pulse Ox O2 Delivery O2 Flow Rate FiO2 08/07/19 04:09 74 16 135/61 (85) 96 Room Air 08/07/19 00:50 98.9 98.9 Lab Values Laboratory Tests Test 08/07/19 00:41 08/07/19 01:04 Urine Collection Type Unknown Urine Color Yellow Urine Clarity Clear Urine pH 6.5 Urine Specific Fitzpatrick 1.010 Urine Protein Negative mg/dL (NEG-TRACE) Urine Glucose (UA) Negative mg/dL (NEG) Urine Ketones (Stick) Negative mg/dL (NEG) Urine Blood Negative (NEG) Urine Nitrite Negative (NEG) Urine Bilirubin Negative (NEG) Urine Urobilinogen Dipstick 1.0 mg/dL (0.2 mg/dL) Urine Leukocyte Esterase Small (NEG) Urine RBC 0 /HPF (0-2) Urine WBC 1-4 /HPF (0-4) Urine Squamous Epithelial Cells Mod /LPF Urine Transitional Epithelial Cells Occ /LPF Urine Bacteria Moderate /HPF (0-FEW) Urine Mucus Slight /LPF White Blood Count 7.7 x10^3/uL (4.0-11.0) Red Blood Count 4.30 x10^6/uL (3.50-5.40) Hemoglobin 13.5 g/dL (12.0-15.5) Hematocrit 40.4 % (36.0-47.0) Mean Corpuscular Volume 94 fL (79-100) Mean Corpuscular Hemoglobin 31 pg (25-35) Mean Corpuscular Hemoglobin Concent 33 g/dL (31-37) Red Cell Distribution Width 14.3 % (11.5-14.5) Platelet Count 227 x10^3/uL (140-400) Neutrophils (%) (Auto) 71 % (31-73) Lymphocytes (%) (Auto) 18 % (24-48) L Monocytes (%) (Auto) 9 % (0-9) Eosinophils (%) (Auto) 2 % (0-3) Basophils (%) (Auto) 0 % (0-3) Neutrophils # (Auto) 5.5 x10^3/uL (1.8-7.7) Lymphocytes # (Auto) 1.3 x10^3/uL (1.0-4.8) Monocytes # (Auto) 0.7 x10^3/uL (0.0-1.1) Eosinophils # (Auto) 0.2 x10^3/uL (0.0-0.7) Basophils # (Auto) 0.0 x10^3/uL (0.0-0.2) Sodium Level 141 mmol/L (136-145) Potassium Level 3.6 mmol/L (3.5-5.1) Chloride Level 104 mmol/L (98-107) Carbon Dioxide Level 29 mmol/L (21-32) Anion Gap 8 (6-14) Blood Urea Nitrogen 16 mg/dL (7-20) Creatinine 0.9 mg/dL (0.6-1.0) Estimated GFR (Cockcroft-Gault) 59.8 BUN/Creatinine Ratio 18 (6-20) Glucose Level 97 mg/dL (70-99) Calcium Level 9.4 mg/dL (8.5-10.1) Total Bilirubin 0.5 mg/dL (0.2-1.0) Aspartate Amino Transferase (AST) 16 U/L (15-37) Alanine Aminotransferase (ALT) 7 U/L (14-59) L Alkaline Phosphatase 102 U/L (46-116) Total Protein 7.2 g/dL (6.4-8.2) Albumin 2.9 g/dL (3.4-5.0) L Albumin/Globulin Ratio 0.7 (1.0-1.7) L Laboratory Tests 08/07/19 01:04 Laboratory Tests 08/07/19 01:04 EKG EKG [] Radiology/Procedures Radiology/Procedures [][facility] [address] [place], [place] [id number] IMAGING REPORT Signed PATIENT: HARDEEP KNIGHT ACCOUNT: [id number] : 1935 LOCATION: ER AGE: 84 SEX: F EXAM STATUS: REG ER ORD. PHYSICIAN: DERECK KYLE MD REASON: Blurry vision PROCEDURE: CT HEAD WO CONTRAST STUDY: CT head without contrast INDICATION: Blurred vision. COMPARISON: MRI of the brain 07/25/2019; CT head 06/15/2019 TECHNIQUE: Axial CT imaging through the head without the use of intravenous contrast. Sagittal and coronal reformats were obtained. One or more of the following individualized dose reduction techniques were utilized for this examination: 1. Automated exposure control 2. Adjustment of the mA and/or kV according to patient size 3. Use of iterative reconstruction technique. FINDINGS: No acute intracranial hemorrhage. No mass effect, midline shift or hydrocephalus. No CT evidence for an acute cortical infarction. Parenchymal volume loss. Unchanged osseous excrescence off the inner table of the right frontal calvarium. No depressed calvarial fracture. Unremarkable mastoid air cells, middle ears and partially imaged paranasal sinuses. No CT abnormality of the globes or retrobulbar soft tissues. IMPRESSION: No acute intracranial abnormality by CT. No interval change from 06/15/2019. Electronically signed by: KAEL ARIZA MD (08/07/2019 3:53 AM) [facility] DICTATED and SIGNED BY: KAEL ARIZA MD DATE: 08/07/19 0353 Course & Med Decision Making Course & Med Decision Making Pertinent Labs and Imaging studies reviewed. (See chart for details) []84-year-old female with underlying history of hypertension, depression, hyperlipidemia presents to the emergency department for further evaluation. Patient has complaints of bilateral hip pain initially she was seen by primary care physician and prescribed tramadol as well as meloxicam however states she did not like the way it made her feel. Patient did take Tylenol I was able to sleep does night. Tonight she describes hallucinations, blurry vision at times. However not currently. She denies any complaints of chest pain, shortness breath, nausea, vomiting, headache or visual change at this time. Nothing makes her symptoms worse nothing makes her symptoms better Laboratory values including CBC, metabolic profile, urinalysis unremarkable for acute process CT the head reveals no evidence of acute intracranial process She without acute complaints at this time we'll plan for discharge home follow up with primary care physician as an outpatient Return precautions provided. Dragon Disclaimer Dragon Disclaimer This electronic medical record was generated, in whole or in part, using a voice recognition dictation system. Departure Departure Impression: Primary Impression: Hallucination Additional Impression: Weakness Disposition: 01 HOME, SELF-CARE Condition: IMPROVED Referrals: UNKNOWN PCP NAME (PCP) Patient Instructions: Hallucinations and Delusions Additional Instructions: Recommend follow up with PCP 3 - 5 days Return to the ER with worsening symptoms, intractable pain, fever, altered mental status Tylenol/Motrin as needed for pain CT head negative for acute process Labs without evidence of infection Problem Qualifiers DERECK KYLE MD Aug 07, 2019 01:52
[2019-08-07 02:00] LABS: BASO % 0 % (0-3); EOS # 0.2 x10^3/uL (0.0-0.7); EOS % 2 % (0-3); HEMATOCRIT 40.4 % (36.0-47.0); HEMOGLOBIN 13.5 g/dL (12.0-15.5); LYMPH # 1.3 x10^3/uL (1.0-4.8); LYMPH % 18 % (24-48); MEAN CORPUSCULAR HEMOGLOBIN 31 pg (25-35); MEAN CORPUSCULAR HGB CONC 33 g/dL (31-37); MEAN CORPUSCULAR VOLUME 94 fL (79-100); MONO # 0.7 x10^3/uL (0.0-1.1); MONO % 9 % (0-9); NEUT # 5.5 x10^3/uL (1.8-7.7); NEUT % 71 % (31-73); PLATELET COUNT 227 x10^3/uL (140-400); RED CELL DISTRIBUTION WIDTH 14.3 % (11.5-14.5); WHITE BLOOD COUNT 7.7 x10^3/uL (4.0-11.0)
[2019-08-07 02:12] LABS: CALCIUM 9.4 mg/dL (8.5-10.1); CREATININE 0.9 mg/dL (0.6-1.0); GFR 59.8; POTASSIUM 3.6 mmol/L (3.5-5.1)
[2019-08-07 02:13] LABS: BILIRUBIN,URINE NEGATIVE (NEG); CLARITY,URINE CLEAR; COLOR,URINE YELLOW; NITRITE,URINE NEGATIVE (NEG); PH,URINE 6.5; PROTEIN,URINE NEGATIVE (NEG-TRACE)
[2019-08-07 02:18] LABS: ALBUMIN 2.9 g/dL (3.4-5.0); ALBUMIN/GLOBULIN RATIO 0.7 (1.0-1.7); TOTAL BILIRUBIN 0.5 mg/dL (0.2-1.0); TOTAL PROTEIN 7.2 g/dL (6.4-8.2)
[2019-08-07 02:21] LABS: BACTERIA,URINE MODERATE /HPF (0-FEW); RBC,URINE 0 /HPF (0-2)
[2019-08-07 02:22] LABS: SQUAMOUS EPITHELIAL CELL,UR MOD /LPF
--- NOTE | 2019-08-07 03:56 | RAD ---
STUDY: CT head without contrast INDICATION: Blurred vision. COMPARISON: MRI of the brain 07/25/2019; CT head 06/15/2019 TECHNIQUE: Axial CT imaging through the head without the use of intravenous contrast. Sagittal and coronal reformats were obtained. One or more of the following individualized dose reduction techniques were utilized for this examination: 1. Automated exposure control 2. Adjustment of the mA and/or kV according to patient size 3. Use of iterative reconstruction technique. FINDINGS: No acute intracranial hemorrhage. No mass effect, midline shift or hydrocephalus. No CT evidence for an acute cortical infarction. Parenchymal volume loss. Unchanged osseous excrescence off the inner table of the right frontal calvarium. No depressed calvarial fracture. Unremarkable mastoid air cells, middle ears and partially imaged paranasal sinuses. No CT abnormality of the globes or retrobulbar soft tissues. IMPRESSION: No acute intracranial abnormality by CT. No interval change from 06/15/2019. Electronically signed by: KAEL ARIZA MD (08/07/2019 3:53 AM) [facility]
[2019-08-07 04:09] VITALS: BP 135/61
== END 2019-08-07 04:25 | disposition home or self-care (01) ==
LOC: ER 00:33
DX: R44.3 Hallucinations, unspecified (principal); R53.1 Weakness; H53.8 Other visual disturbances; M25.551 Pain in right hip; M25.552 Pain in left hip; I10 Essential (primary) hypertension; F32.9 Major depressive disorder, single episode, unspecified; J44.9 Chronic obstructive pulmonary disease, unspecified; K21.9 Gastro-esophageal reflux disease without esophagitis; E78.00 Pure hypercholesterolemia, unspecified; E78.5 Hyperlipidemia, unspecified; Z86.73 Personal history of transient ischemic attack (TIA), and cerebral infarction without residual deficits
CPT/HCPCS: 36415; 70450; 80053; 81001; 85025; 87086; 99285

== ENCOUNTER 2019-09-02 05:25 | Emergency (ER) | payer MEDICARE, BC ==
[~2019-09-02] VITALS: Ht 162.6 cm; Wt 75.0 kg
--- NOTE | 2019-09-02 05:39 | PHYS DOC ---
Past Medical History Past Medical History: Cancer, COPD, Depression, GERD, High Cholesterol, TIA, Other Additional Past Medical Histor: colon cancer Past Surgical History: Appendectomy, Cholecystectomy, Hysterectomy, Tonsillectomy, Other Additional Past Surgical Histo: bowel resection Alcohol Use: None Drug Use: None Adult General Chief Complaint Chief Complaint: ABDOMINAL PAIN [facility] HPI 84-year-old female with underlying history of colon cancer, bone cancer, hyperlipidemia presents to the emergency department with complaints of inability to urinate. She is on hospice care at this time unknown exactly when her last urination was she states it may have been Thursday. Patient denies any complaints of pain. She does have a pathological left hip fracture of which was not fixed. Patient denies any chest pain, shortness of breath, nausea, vomiting, abdominal pain. She does have some mild abdominal distention on examination. She denies any fever, headache on examination. Review of Systems Review of Systems Constitutional: Denies fever or chills [] Respiratory: Denies cough or shortness of breath [] Cardiovascular: No additional information not addressed in HPI [] GI: Denies abdominal pain, nausea, vomiting, bloody stools or diarrhea [] Musculoskeletal: Denies back pain or joint pain [] Integument: Denies rash or skin lesions [] Neurologic: Denies headache, focal weakness or sensory changes [] : inability to urinate All other systems were reviewed and found to be within normal limits, except as documented in this note. Allergies Allergies Allergies Coded Allergies Type Severity Reaction Last Updated Verified No Known Drug Allergies 03/22/18 No Physical Exam Physical Exam Constitutional: Well developed, well nourished, no acute distress, non-toxic appearance. [] HENT: Normocephalic, atraumatic, bilateral external ears normal, oropharynx moist, no oral exudates, nose normal. [] Eyes: PERRLA, EOMI, conjunctiva normal, no discharge. [] Cardiovascular:Heart rate regular rhythm, no murmur [] Lungs & Thorax: Bilateral breath sounds clear to auscultation [] Abdomen: Bowel sounds normal, soft, mild suprapubic tenderness, no masses, no pulsatile masses. [] Skin: Warm, dry, no erythema, no rash. [] Back: No tenderness, no CVA tenderness. [] Extremities: No tenderness,no edema. [] Neurologic: Alert and oriented X 3, no focal deficits noted. [] Psychologic: Affect normal, judgement normal, mood normal. [] EKG EKG [] Radiology/Procedures Radiology/Procedures [] Course & Med Decision Making Course & Med Decision Making Pertinent Labs and Imaging studies reviewed. (See chart for details) []84-year-old female with underlying history of colon cancer, bone cancer, hyperlipidemia presents to the emergency department with complaints of inability to urinate. She is on hospice care at this time unknown exactly when her last urination was she states it may have been Thursday. Patient denies any complaints of pain. She does have a pathological left hip fracture of which was not fixed. Patient denies any chest pain, shortness of breath, nausea, vomiting, abdominal pain. She does have some mild abdominal distention on examination. She denies any fever, headache on examination. Bladder scan with 970ml present UA pending - patient with known UTI (on abx) Indwelling gomez catheter placed Discussed findings with daughter will plan dc home after labs and gomez placed Hospice will see patient today Dragon Disclaimer Dragon Disclaimer This electronic medical record was generated, in whole or in part, using a voice recognition dictation system. Departure Departure Impression: Primary Impression: Urinary retention Additional Impression: UTI (urinary tract infection) Disposition: HOME, SELF-CARE Condition: IMPROVED Referrals: UNKNOWN PCP NAME (PCP) Patient Instructions: Gomez Catheter Care, Adult, Urinary Retention, Acute, Female, [id number] Additional Instructions: Recommend follow up with PCP 3 - 5 days Return to the ER with worsening symptoms, intractable pain, fever, altered mental status Tylenol/Motrin as needed for pain Finish antibiotics as scheduled Keep gomez catheter in place, 970ml of urine in bladder Problem Qualifiers Additional Impression: UTI (urinary tract infection) Urinary tract infection type: site unspecified Hematuria presence: without hematuria Qualified Codes: N39.0 - Urinary tract infection, site not specified DERECK KYLE MD Sep 02, 2019 05:39
[2019-09-02 06:12] LABS: BILIRUBIN,URINE NEGATIVE (NEG); CLARITY,URINE CLEAR; COLOR,URINE YELLOW; NITRITE,URINE NEGATIVE (NEG); PH,URINE 6.5; PROTEIN,URINE NEGATIVE (NEG-TRACE)
[2019-09-02 06:14] LABS: CALCIUM 9.3 mg/dL (8.5-10.1); CREATININE 0.8 mg/dL (0.6-1.0); GFR 68.5; POTASSIUM 3.3 mmol/L (3.5-5.1)
[2019-09-02 06:20] LABS: ALBUMIN 2.9 g/dL (3.4-5.0); ALBUMIN/GLOBULIN RATIO 0.7 (1.0-1.7); TOTAL BILIRUBIN 0.6 mg/dL (0.2-1.0)
[2019-09-02 06:42] LABS: BACTERIA,URINE 0 /HPF (0-FEW); RBC,URINE OCC /HPF (0-2); SQUAMOUS EPITHELIAL CELL,UR OCC /LPF; WBC,URINE OCC /HPF (0-4)
[2019-09-02] MEDS: fentaNYL PF VIAL 100 MCG/2 ML VIAL IM ONE (07:32)
[2019-09-02 08:07] VITALS: BP 142/73
== END 2019-09-02 08:50 | disposition home or self-care (01) ==
LOC: ER 05:25
DX: N39.0 Urinary tract infection, site not specified (principal); R33.9 Retention of urine, unspecified; J44.9 Chronic obstructive pulmonary disease, unspecified; F32.9 Major depressive disorder, single episode, unspecified; K21.9 Gastro-esophageal reflux disease without esophagitis; E78.00 Pure hypercholesterolemia, unspecified; Z86.73 Personal history of transient ischemic attack (TIA), and cerebral infarction without residual deficits; Z90.49 Acquired absence of other specified parts of digestive tract; Z85.9 Personal history of malignant neoplasm, unspecified; Z90.89 Acquired absence of other organs; Z90.710 Acquired absence of both cervix and uterus; Z98.890 Other specified postprocedural states
CPT/HCPCS: 36415; 51702; 80053; 81001; 96372; 99285; J3010